=== PATIENT | female | born 1955 | race Caucasian/White ===

== ENCOUNTER 2024-07-11 15:40 | Emergency (ER) | payer OTHER, SELFPAY ==
[2024-07-11 15:42] VITALS: BMI 24.9
[2024-07-11 15:59] VITALS: BP 121/82; PULSE 111; RESP 17; TEMP 36.7; O2SAT 99
--- NOTE | 2024-07-11 15:59 | PC.NURSE ---
PT COMING IN FROM ED LOBBY WITH C/O GLF; PER PT, I LOST MY FOOTING WHEN I WAS TURNING AND HIT MY FACE ON THE CONCRETE. PT DENIES LOC; ABRASIONS NOTED ON PT'S FACE. PT HAS HX OF A.FIB AND IS TAKING ELIQUIS FOR BLOOD THINNERS. PT ALSO HAS HX OF L TOTAL KNEE REPLACEMENT. PT CONNECTED TO MONITORS AT THIS TIME.
--- NOTE | 2024-07-11 16:05 | PC.NURSE ---
Pt given ice pack to apply to forehead. Pt sustained a hematoma to R forehead s/p GLF.
--- NOTE | 2024-07-11 16:18 | EDNOTE_ITS ---
ED Head Injury RME/HPI General Chief complaint: Head Injury Stated complaint: FALL AND HIT FACE TODAY, NO LOC, ON BLOOD THINNERS Time Seen by Provider: 07/11/24 16:11 Arrival date/time: 07/11/24 15:40 RME / HPI RME / HPI Narrative: DR. GRANADO MAIN ED EVALUATION: 68 year old female presents to the Emergency Department with complaints of head injury. Patient states she tripped in the backyard and hit her forehead. Dana ent reports no loss of consciousness. No nausea or dizziness. She takes blood thinners. PMHx: Atrial fibrillation, on blood thinners. Social Hx: No tobacco, alcohol, or substance use. Related Data Allergies Allergy/AdvReac Type Severity Reaction Status Date / Time No Known Allergies Allergy Verified 07/11/24 15:45 Review of Systems Review of Systems Systems Reviewed: All systems reviewed, normal except as documented Narrative Review of Systems: GEN: No fever, no chills, no weight loss EYES: No discharge, no visual changes, no pain HEENT: No ear pain, no congestion, no sore throat; + head injury and right forehead hematoma from fall (see HPI) PULM: No shortness of breath, no cough, no congestion CV: No chest pain, no dyspnea on exertion, no palpitations GI: No nausea, no vomiting, no diarrhea, no pain, no constipation : No frequency, no urgency and no dysuria MUSC/SKEL: No joint pain, no back pain SKIN: No rash PSYCH: No hallucinations, no depression HEME/LYMPH: No easy bleeding or bruising tendencies NEURO: No weakness, + headache from fall (see HPI) Past Medical History Past Medical History NEUROLOGIC: Positive Seizures CARDIAC: Positive Cardiac Disorders (A.FIB) OTHER HISTORY: Positive Falls Family History FAMILY HISTORY: Positive Family Endocrine Disorders and Family Cancer (PT'S MOM LUNG & BREAST CANCER) Surgical History SURGICAL: Positive Knee Sx (L TOTAL KNEE REPLACEMENT) Social History SMOKING STATUS: Never smoker SUBSTANCE USE: does not use ALCOHOL: Never ED Exam Narrative Physical exam: GENERAL APPEARANCE: alert and oriented x 4, well-developed, well-nourished, no acute distress VITALS: All vitals were reviewed and the pulse ox is 99% on room air, which is normal according to my interpretation. HEENT: right forehead hematoma; pupils equal, round, reactive to light; EOMI; mucous membranes pink, moist; oropharynx clear NECK: Supple LUNGS: CTABL; no wheezes, no rales, no rhonchi HEART: Regular rate, regular rhythm; normal S1, S2; no murmurs ABDOMEN: non distended; normal BS; soft, no tenderness, no guarding, no rebound; no masses, no organomegaly, no hernia BACK: no CVA tenderness EXTREMITIES: Dorsum of right hand mild abrasion, mild ecchymosis, no deformity; no edema NEUROLOGIC: awake; alert and oriented x4; cranial nerves II-XII grossly intact; no focal sensory or motor deficits PSYCHIATRIC: appropriate mood and affect SKIN: warm, dry, normal color; no rashes Course Quality Measures none Orders Category Date Time Status EKG (ED ONLY) *Do not use* NOW Care 07/11/24 16:[address] cervical spine wo con Stat Exams 07/11/24 16:[address] facial bones wo con Stat Exams 07/11/24 16:[address] head/brain wo con Stat Exams 07/11/24 16:28 Completed EKG (ED Only) Stat Exams 07/11/24 16:21 Draft HYDROcodone*/APAP 5/325 [[place] 5/325] Med 07/11/24 16:29 Discontinued 1 tab PO X1 ONE Vital Signs Vital signs: Vital Signs Temperature 98.0 F 07/11/24 15:59 Pulse Rate 111 H 07/11/24 15:59 Respiratory Rate 17 07/11/24 15:59 Blood Pressure 121/82 07/11/24 15:59 Pulse Oximetry (%) 99 07/11/24 15:59 Oxygen Delivery Method Room Air 07/11/24 15:59 Head Injury MDM Narrative MDM Narrative:: Destiney Gallegos am scribing for and in the presence of Dr. Granado. Patient data External records reviewed:: None (no previous visits) Clinical information provided by:: patient Social determinants that could affect healthcare access:: none Patient has the following chronic illnesses:: Atrial fibrillation, on blood thinners. How is presenting disease/condition affected by chronic disease/condition?: uneffected by Evaluation data The following diagnostics were reviewed and interpreted by me:: radiology exam(s) and EKG tracing(s) (EKG#1: EKG at 1636 hours. Interpreted by me: atrial fibrillation, rate 98, no acute ischemic changes) Lab and/or radiology exams considered but not ordered:: none Interpretation Summary: Procedure(s): CT head/brain wo con Accession Number(s): [id number] cc: Tj Anaya MD; Sulema Granado MD~ Examination: CT brain head without contrast. 2-D sagittal coronal reconstructions Date and time of exam:July 11, 2024 at 1649 hrs. Indications: Patient fell today with injury to head, head pain CTDI: vol (mGy):46.6 DLP: (mGycm):925 Technique: Multiple CT axial sections of the brain have been obtained, 5 mm slice thickness. Contrast has not been administered. 2-D sagittal, coronal reconstructions have been obtained Low dose protocols were performed. One or more of the following dose reduction techniques were used; automated exposure control, adjustment of the mA and/or KV according to patient size, use of iterative reconstruction technique. Findings: No significant ventricular enlargement. Right frontal scalp swelling Intra-axial or extra-axial hemorrhage density is not seen. No mass effect or midline shift Basal cisterns are not remarkable. Fourth ventricle is midline. Cranial vault intact. Impression: Negative for acute hemorrhage, mass effect or midline shift Dictated By: Tj Anaya MD Procedure(s): CT facial bones con Accession Number(s): [id number] cc: Tj Anaya MD; Sulema Granado MD~ Examination: CT maxillofacial, without intravenous contrast. 2-D sagittal reconstructions. 3-D reconstructions. Date and time of exam:July 11, 2024 1629 hrs. Indications: Patient fell today with injury to the face, nose pain CTDI: vol (mGy):20.5 DLP: (mGycm):346 Technique: Multiple axial images of maxillofacial region, 3.0 mm slice thickness. 2-D sagittal and coronal reconstructions. 3-D reconstructions. Low dose protocols were performed. One or more of the following dose reduction techniques were used; automated exposure control, adjustment of the mA and/or KV according to patient size, use of iterative reconstruction technique. Findings: Frontal bones intact Orbital rims intact Soft tissue swelling right frontal scalp Mild old appearing right nasal bone deformity image 84 No fractures of the zygomatic arches Acute ethmoid sphenoid maxillary antral sinusitis Maxillary dental caries Mandibular dental caries No acute mandible or maxillary fracture Impression: Mild old appearing left nasal bone deformity, clinical correlation advised. Dictated By: Tj Anaya MD Procedure(s): CT cervical spine wo con Accession Number(s): [id number] cc: Tj Anaya MD; Sulema Granado MD~ Examination: CT cervical spine without contrast 2-D sagittal reconstructions 2-D coronal reconstructions 3-D reconstructions. Exam date and time:July 11, 2024 at 1659 hrs. Indications: Patient fell today with injury to the neck, neck pain CTDI:vol (mGy) 13.2 DLP: (mGycm) 270 Technique: Multiple 2 mm axial sections of the cervical spine have been obtained. The coronal and sagittal reconstructions have been obtained. 3-D reconstructions have been obtained. Low dose protocols were performed. One or more of the following dose reduction techniques were used; automated exposure control, adjustment of the mA and/or KV according to patient size, use of iterative reconstruction technique. Findings: Axial sections demonstrate intact base of the skull. C1 exhibit satisfactory relationship to the odontoid. No acute cervical vertebral body fracture seen. Alignment posterior spinous processes satisfactory. Advanced degenerative disc disease C3-C4, C4-C5, C5-C6, C6-C7, Impression: No acute cervical fracture. Dictated By: Tj Anaya MD Medications / Prescriptions Medications or Prescriptions considered but not ordered:: none Medication administrations:: Medication Administration History Discontinued Medications Hydrocodone Bitart/Acetaminophen (Hydrocodone/[place] 5/325 Tablet) 1 tab PO X1 ONE Stop: 07/11/24 16:30 Last Admin: 07/11/24 16:39 Dose: 1 tab Documented By: GM see above Consultations Consultation(s) initiated? (list below): No Diagnosis Differential diagnosis head injury: concussion without loss of consciousness, closed head injury, subarachnoid hematoma and subdural hematoma Most likely diagnosis given after review of the tests above:: Head injury Traumatic hematoma of forehead Dental caries Sinusitis Admission Indicated Admission indicated?: not indicated Admission Request Was there a request for admission?: No Disposition Plan Disposition Plan: Discharge Discharge Attestation Discharge Attestation: The patient and all family members were given an opportunity to ask questions and understood the discharge instructions. Discharge instructions specifically effects, indications for sooner follow up or return to the emergency department, and the expected course of current diagnosis. Patient condition: Stable Discharge Plan Plan Patient Disposition: HOME (Self Care) Problem List Clinical Impression: Head injury, Traumatic hematoma of forehead, Dental caries, Sinusitis Patient/Caregiver Discharge Instructions Education Materials: Self-Care for Sinusitis, ED Dental Cavity, ED Facial Contusion, ED Head Injury (Adult) Print Language: [place] Stand Alone Forms: [employer] Award Info., Patient Portal Info Letter
--- NOTE | 2024-07-11 16:21 | EKG_ITS ---
[facility] Test Date: 2024-07-11 Pat Name: RYAN MEJIA Department: Room: - Gender: Female Reel [employer]: : 1955 Requested By: Sulema Quick Order Number: [id number] Reading MD: Sulema Quick Measurements Intervals [place] Rate: 98 P: [place]: QRS: 38 QRSD: 78 T: 61 QT: 349 QTc: 447 Interpretive Statements ATRIAL FIBRILLATION ABNORMAL RHYTHM ECG No previous ECG available for comparison /store/S0/[id number]/ecg/[id number].pdf
--- NOTE | 2024-07-11 16:28 | XR_ITS ---
Examination: CT brain head without contrast. 2-D sagittal coronal reconstructions Date and time of exam:July 11, 2024 at 1649 hrs. Indications: Patient fell today with injury to head, head pain CTDI: vol (mGy):46.6 DLP: (mGycm):925 Technique: Multiple CT axial sections of the brain have been obtained, 5 mm slice thickness. Contrast has not been administered. 2-D sagittal, coronal reconstructions have been obtained Low dose protocols were performed. One or more of the following dose reduction techniques were used; automated exposure control, adjustment of the mA and/or KV according to patient size, use of iterative reconstruction technique. Findings: No significant ventricular enlargement. Right frontal scalp swelling Intra-axial or extra-axial hemorrhage density is not seen. No mass effect or midline shift Basal cisterns are not remarkable. Fourth ventricle is midline. Cranial vault intact. Impression: Negative for acute hemorrhage, mass effect or midline shift
--- NOTE | 2024-07-11 16:28 | XR_ITS ---
Examination: CT maxillofacial, without intravenous contrast. 2-D sagittal reconstructions. 3-D reconstructions. Date and time of exam:July 11, 2024 1629 hrs. Indications: Patient fell today with injury to the face, nose pain CTDI: vol (mGy):20.5 DLP: (mGycm):346 Technique: Multiple axial images of maxillofacial region, 3.0 mm slice thickness. 2-D sagittal and coronal reconstructions. 3-D reconstructions. Low dose protocols were performed. One or more of the following dose reduction techniques were used; automated exposure control, adjustment of the mA and/or KV according to patient size, use of iterative reconstruction technique. Findings: Frontal bones intact Orbital rims intact Soft tissue swelling right frontal scalp Mild old appearing right nasal bone deformity image 84 No fractures of the zygomatic arches Acute ethmoid sphenoid maxillary antral sinusitis Maxillary dental caries Mandibular dental caries No acute mandible or maxillary fracture Impression: Mild old appearing left nasal bone deformity, clinical correlation advised.
--- NOTE | 2024-07-11 16:28 | XR_ITS ---
Examination: CT cervical spine without contrast 2-D sagittal reconstructions 2-D coronal reconstructions 3-D reconstructions. Exam date and time:July 11, 2024 at 1659 hrs. Indications: Patient fell today with injury to the neck, neck pain CTDI:vol (mGy) 13.2 DLP: (mGycm) 270 Technique: Multiple 2 mm axial sections of the cervical spine have been obtained. The coronal and sagittal reconstructions have been obtained. 3-D reconstructions have been obtained. Low dose protocols were performed. One or more of the following dose reduction techniques were used; automated exposure control, adjustment of the mA and/or KV according to patient size, use of iterative reconstruction technique. Findings: Axial sections demonstrate intact base of the skull. C1 exhibit satisfactory relationship to the odontoid. No acute cervical vertebral body fracture seen. Alignment posterior spinous processes satisfactory. Advanced degenerative disc disease C3-C4, C4-C5, C5-C6, C6-C7, Impression: No acute cervical fracture.
[2024-07-11 16:30] VITALS: BP 112/72; PULSE 115; RESP 12; TEMP 36.8; O2SAT 100
[2024-07-11] MEDS: HYDROcodone/APAP 5/325 TABLET 1 TAB PO (16:39)
[2024-07-11 18:08] VITALS: BP 118/83; PULSE 100; RESP 12; TEMP 36.5; O2SAT 97
== END 2024-07-11 18:38 | disposition home or self-care (01) ==
LOC: SERX 18:21
PROVIDERS: Emergency Provider Emergency Medicine; PCP Family Medicine
DX: S00.83XA Contusion of other part of head, initial encounter (principal); W19.XXXA Unspecified fall, initial encounter; K02.9 Dental caries, unspecified; J32.9 Chronic sinusitis, unspecified
CPT/HCPCS: 70450; 70486; 72125; 93005; 99284; A9270